=== PATIENT | female | born 1940 | race Caucasian/White ===

== ENCOUNTER → 2018-10-09 06:00 | Outpatient (REF) | payer MEDICARE, OTHER, MEDICAID, SELFPAY ==
[2018-10-09 09:40] LABS: International Normalized Ratio 1.6; Partial Thromboplast Time 33.4 Seconds (24.1-36.2); Prothrombin Time (Protime)PT. 18.8 SECONDS (11.7-14.9)
[2018-10-09 09:41] LABS: Hematocrit 29.4 % (37-47); Hemoglobin 8.6 g/dl (12.0-15.0); Mean Corp Hgb Conc 29.3 g/gl (32-36); Mean Corpuscular Hgb 29.6 pg (27.0-32.0); Mean Platelet Vol. 11.1 fl (6.2-12.0); Platelet Count 181 K/mm3 (150-450); RBC Distribution Width CV 15.6 % (11.6-14.6); RBC Distribution Width SD 56.6 fl (35.1-43.9); Red Blood Count 2.91 M/mm3 (4.2-5.4); White Blood Count 5.3 K/mm3 (4.4-11.0)
[2018-10-09 09:43] LABS: Scan Indicated on CBC? Y/N NO
== END ==
LOC: OLS.ACW100 06:00
PROVIDERS: Visit Provider Family Medicine
DX: D50.0 Iron deficiency anemia secondary to blood loss (chronic) (principal); R27.9 Unspecified lack of coordination; R26.81 Unsteadiness on feet; R13.11 Dysphagia, oral phase; I50.33 Acute on chronic diastolic (congestive) heart failure; Z74.09 Other reduced mobility
CPT/HCPCS: 36415; 85027; 85610; 85730

== ENCOUNTER → 2018-10-11 04:00 | Outpatient (REF) | payer MEDICARE, OTHER, MEDICAID, SELFPAY ==
[2018-10-11 11:05] LABS: Hematocrit 32.7 % (37-47); Hemoglobin 9.4 g/dl (12.0-15.0); Mean Corp Hgb Conc 28.7 g/gl (32-36); Mean Corpuscular Hgb 29.3 pg (27.0-32.0); Mean Corpuscular Volume 101.9 fL (81-99); Mean Platelet Vol. 10.9 fl (6.2-12.0); Platelet Count 173 K/mm3 (150-450); RBC Distribution Width CV 15.4 % (11.6-14.6); RBC Distribution Width SD 57.4 fl (35.1-43.9); Red Blood Count 3.21 M/mm3 (4.2-5.4); White Blood Count 5.7 K/mm3 (4.4-11.0)
[2018-10-11 11:12] LABS: International Normalized Ratio 1.5
[2018-10-11 11:13] LABS: Partial Thromboplast Time 33.2 Seconds (24.1-36.2)
[2018-10-11 11:14] LABS: Scan Indicated on CBC? Y/N NO
== END ==
LOC: OLS.ACW100 04:00
PROVIDERS: Visit Provider Family Medicine
DX: D50.0 Iron deficiency anemia secondary to blood loss (chronic) (principal); R27.9 Unspecified lack of coordination; R26.81 Unsteadiness on feet; R13.11 Dysphagia, oral phase; I50.33 Acute on chronic diastolic (congestive) heart failure; Z74.09 Other reduced mobility
CPT/HCPCS: 36415; 85027; 85610; 85730

== ENCOUNTER → 2018-10-18 | Outpatient (REF) | payer MEDICARE, OTHER, MEDICAID, SELFPAY ==
[2018-10-18 08:25] LABS: Hematocrit 30.9 % (37-47); Hemoglobin 8.9 g/dl (12.0-15.0); Mean Corp Hgb Conc 28.8 g/gl (32-36); Mean Corpuscular Hgb 29.9 pg (27.0-32.0); Mean Corpuscular Volume 103.7 fL (81-99); Mean Platelet Vol. 11.7 fl (6.2-12.0); Platelet Count 154 K/mm3 (150-450); RBC Distribution Width CV 14.6 % (11.6-14.6); Red Blood Count 2.98 M/mm3 (4.2-5.4); White Blood Count 5.3 K/mm3 (4.4-11.0)
[2018-10-18 08:27] LABS: Scan Indicated on CBC? Y/N NO
[2018-10-18 08:59] LABS: International Normalized Ratio 1.7; Prothrombin Time (Protime)PT. 20.1 SECONDS (11.7-14.9)
[2018-10-18 09:00] LABS: Partial Thromboplast Time 33.7 Seconds (24.1-36.2)
== END | disposition home or self-care (01) ==
LOC: OLS.ACW100 04:00
PROVIDERS: Visit Provider Family Medicine
DX: D50.0 Iron deficiency anemia secondary to blood loss (chronic) (principal); R27.9 Unspecified lack of coordination; R26.81 Unsteadiness on feet; Z74.09 Other reduced mobility; R13.11 Dysphagia, oral phase; I50.33 Acute on chronic diastolic (congestive) heart failure
CPT/HCPCS: 36415; 85027; 85610; 85730

== ENCOUNTER → 2018-10-25 | Outpatient (REF) | payer MEDICARE, OTHER, MEDICAID, SELFPAY ==
[2018-10-25 08:49] LABS: Hematocrit 32.1 % (37-47); Hemoglobin 9.4 g/dl (12.0-15.0); Mean Corp Hgb Conc 29.3 g/gl (32-36); Mean Corpuscular Hgb 29.2 pg (27.0-32.0); Mean Corpuscular Volume 99.7 fL (81-99); Mean Platelet Vol. 11.2 fl (6.2-12.0); Platelet Count 192 K/mm3 (150-450); RBC Distribution Width CV 14.5 % (11.6-14.6); RBC Distribution Width SD 52.9 fl (35.1-43.9); Red Blood Count 3.22 M/mm3 (4.2-5.4); White Blood Count 5.6 K/mm3 (4.4-11.0)
[2018-10-25 08:50] LABS: Scan Indicated on CBC? Y/N NO
[2018-10-25 08:53] LABS: International Normalized Ratio 1.5; Prothrombin Time (Protime)PT. 18.1 SECONDS (11.7-14.9)
[2018-10-25 08:54] LABS: Partial Thromboplast Time 34.3 Seconds (24.1-36.2)
[2018-10-25 09:04] LABS: ALB/GLOB Ratio 0.9 RATIO (0.9-2.4); AST(SGOT) 15 U/L (15-37); Alanine Aminotransfer ALT/SGPT 14 U/L (13-56); Alkaline Phosphatase 62 U/L (45-117); Anion Gap 2 (5-15); BUN 24 mg/dL (7-18); BUN/Creat Ratio 17.5 RATIO (10-20); Calcium,Total 8.8 mg/dL (8.5-10.1); Chloride 99 mmol/L (98-107); Creatinine, Serum 1.37 mg/dL (0.55-1.02); EST Glomerular Filtration Rate 39 mL/min (>60); Est Glom Filt Rate - Afr Amer 48 mL/min (>60); Globulin 3.4 g/dL (2.2-4.2); Glucose 96 mg/dL (74-106); Potassium 4.1 mmol/L (3.5-5.1); Protein, Total 6.4 g/dL (6.4-8.2); Sodium Level 141 mmol/L (136-145)
== END | disposition home or self-care (01) ==
LOC: OLS.ACW100 04:00
PROVIDERS: Visit Provider Family Medicine
DX: D50.0 Iron deficiency anemia secondary to blood loss (chronic) (principal); R27.9 Unspecified lack of coordination; R26.81 Unsteadiness on feet; Z74.09 Other reduced mobility; R13.11 Dysphagia, oral phase; I50.33 Acute on chronic diastolic (congestive) heart failure
CPT/HCPCS: 36415; 80053; 85027; 85610; 85730

== ENCOUNTER → 2018-10-29 | Outpatient (REF) | payer MEDICARE, OTHER, MEDICAID, SELFPAY ==
[2018-10-29 08:19] LABS: International Normalized Ratio 1.7; Prothrombin Time (Protime)PT. 19.8 SECONDS (11.7-14.9)
[2018-10-29 08:20] LABS: Hematocrit 22.3 % (37-47); Hemoglobin 6.4 g/dl (12.0-15.0); Mean Corp Hgb Conc 28.7 g/gl (32-36); Mean Corpuscular Hgb 29.6 pg (27.0-32.0); Mean Corpuscular Volume 103.2 fL (81-99); Mean Platelet Vol. 11.8 fl (6.2-12.0); Platelet Count 186 K/mm3 (150-450); RBC Distribution Width CV 14.2 % (11.6-14.6); RBC Distribution Width SD 50.8 fl (35.1-43.9); Red Blood Count 2.16 M/mm3 (4.2-5.4); Scan Indicated on CBC? Y/N NO; White Blood Count 6.7 K/mm3 (4.4-11.0)
== END | disposition home or self-care (01) ==
LOC: OLS.ACW100 05:00
PROVIDERS: Visit Provider Family Medicine
DX: D50.0 Iron deficiency anemia secondary to blood loss (chronic) (principal); R27.9 Unspecified lack of coordination; R26.81 Unsteadiness on feet; R13.11 Dysphagia, oral phase; I50.33 Acute on chronic diastolic (congestive) heart failure
CPT/HCPCS: 36415; 85027; 85610; 85730

== ENCOUNTER → 2018-11-01 | Outpatient (REF) | payer MEDICARE, OTHER, MEDICAID, SELFPAY ==
[2018-11-01 09:58] LABS: Hematocrit 27.9 % (37-47); Hemoglobin 8.5 g/dl (12.0-15.0); Mean Corp Hgb Conc 30.5 g/gl (32-36); Mean Corpuscular Hgb 28.8 pg (27.0-32.0); Mean Corpuscular Volume 94.6 fL (81-99); Mean Platelet Vol. 10.7 fl (6.2-12.0); Platelet Count 218 K/mm3 (150-450); RBC Distribution Width CV 16.4 % (11.6-14.6); RBC Distribution Width SD 56.2 fl (35.1-43.9); Red Blood Count 2.95 M/mm3 (4.2-5.4); White Blood Count 6.3 K/mm3 (4.4-11.0)
[2018-11-01 09:59] LABS: Scan Indicated on CBC? Y/N NO
[2018-11-01 10:03] LABS: International Normalized Ratio 1.1; Partial Thromboplast Time 33.1 Seconds (24.1-36.2)
== END | disposition home or self-care (01) ==
LOC: OLS.ACW100 08:00
PROVIDERS: Visit Provider Family Medicine
DX: D50.0 Iron deficiency anemia secondary to blood loss (chronic) (principal); R27.9 Unspecified lack of coordination; R26.81 Unsteadiness on feet; R13.11 Dysphagia, oral phase; Z74.09 Other reduced mobility; I50.33 Acute on chronic diastolic (congestive) heart failure
CPT/HCPCS: 36415; 85027; 85610; 85730